=== PATIENT | female | born 1970 | race Two or more races ===

== ENCOUNTER 2021-01-06 01:56 | Emergency (ER) | payer OTHER ==
[2021-01-06 02:37] VITALS: BP 129/78; PULSE 91; TEMP 97.2; BMI 30.2
[2021-01-06] MEDS ORDERED: ACETAMINOPHEN 325 MG TABLET (FP) PO ONE (03:05)
[2021-01-06] MEDS ORDERED: ACETAMINOPHEN 325 MG TABLET (FP) ONE (03:06)
== END 2021-01-06 06:16 | disposition home or self-care (01) ==
LOC: JER 01:56
DX: S09.90XA Unspecified injury of head, initial encounter (principal); S19.9XXA Unspecified injury of neck, initial encounter
CPT/HCPCS: 70450-TC; 72125-TC; 73610-TC-LT-FY; 73630-TC-LT; 99285-25